=== PATIENT | male | born 1965 | race African-American/Black ===

== ENCOUNTER 2016-11-15 18:21 | Inpatient (IN) | payer MEDICARE, MEDICAID ==
[~2016-11-15] VITALS: Ht 172.7 cm; Wt 77.1 kg
[~2016-11-15 18:21] MED LIST: ASPI81 PO; LISI-660 PO; METF850T2 PO; RISP2 PO
[2016-11-15 18:48] LABS: BASOPHILS % (AUTO) 0.4 % (0.0-2.0); HEMATOCRIT 48.7 % (41-53); HEMOGLOBIN 16.5 g/dL (13.5-17.5); LYMPHOCYTES # (AUTO) 1.5 K/uL (1.0-4.8); MEAN CORPUSCULAR HGB CONC 33.8 G/dL (31.0-37.0); MEAN CORPUSCULAR VOLUME 89 fL (80-100); MONOCYTES # (AUTO) 0.3 K/uL (0.1-1.0); MONOCYTES % (AUTO) 7.5 % (2.0-9.0); NEUTROPHILS # (AUTO) 2.7 K/uL (1.8-7.7); NEUTROPHILS % (AUTO) 58.1 % (40.0-70.0); PLATELET COUNT (AUTO) 168 K/uL (150-450); RED BLOOD CELL COUNT(AUTO) 5.49 MIL/uL (4.50-5.90); RED CELL DISTRIBUTION WIDTH 12.2 % (11.5-14.5); WHITE BLOOD COUNT (AUTO) 4.6 K/uL (4.5-11.0)
[2016-11-15 19:13] LABS: ALANINE AMINOTRANSFERASE 38 U/L (12-78); ALBUMIN 3.7 g/dL (3.4-5.0); ANION GAP 11 mmol/L (8-16); ASPARTATE AMINOTRANSFERASE 18 U/L (15-37); BILIRUBIN,TOTAL 0.2 mg/dL (0.1-1.0); CARBON DIOXIDE 24 mmol/L (22-29); CHLORIDE 97 mmol/L (98-107); CREATININE 1.24 mg/dL (0.60-1.30); GLOMERULAR FILTR. RATE CALC > 60 mL/min (>60); POTASSIUM 4.1 mmol/L (3.5-5.1); SODIUM SERUM 132 mmol/L (136-145); TOTAL PROTEIN, SERUM 7.7 g/dL (6.4-8.2); UREA NITROGEN, BLOOD 14 mg/dL (7-18)
[2016-11-15 19:21] LABS: GLUCOSE,POINT OF CARE 425 MG/DL (70-110)
[2016-11-15] MEDS ORDERED: INSULIN REGULAR, HUMAN 100 UNITS/ML IVP ONE (20:15)
[2016-11-15] MEDS ORDERED: HALOPERIDOL 5 MG TABLET PO PRN (20:30)
[2016-11-15] MEDS ORDERED: LORazepam 2 MG TABLET PO PRN (20:30)
[2016-11-15] MEDS ORDERED: ZOLPIDEM TARTRATE 10 MG TABLET PO PRN (20:30)
[2016-11-15 21:05] LABS: GLUCOSE,POINT OF CARE 149 MG/DL (70-110)
[2016-11-15 21:17] LABS: APPEARANCE,URINE CLEAR (CLEAR); GLUCOSE, URINE (UA) >=1000 mg/dL (NEGATIVE); KETONES,URINE NEGATIVE (NEGATIVE); LEUKOCYTE ESTERASE ,URINE NEGATIVE (NEGATIVE); OCCULT BLOOD,URINE NEGATIVE (NEGATIVE); PH,URINE 5.5 (5.0-8.0); PROTEIN,URINE NEGATIVE (NEGATIVE)
[2016-11-15 21:18] LABS: ADD UA MICROSCOPIC YES
[2016-11-15 21:29] LABS: SQUAMOUS EPITHELIAL CELL,UR Few /LPF (None Seen)
[2016-11-15 21:30] LABS: RBC,URINE None Seen /HPF (0-2); WBC,URINE 0-2 /HPF (0-5)
[2016-11-15 21:55] LABS: GLUCOSE,POINT OF CARE 114 MG/DL (70-110)
[2016-11-16 00:31] VITALS: BP 144/87
[2016-11-16 06:11] LABS: GLUCOSE,POINT OF CARE 310 MG/DL (70-110)
[2016-11-16 08:00] VITALS: BP 159/90
[2016-11-16] MEDS: RisperiDONE 2 MG TABLET PO SCH ×3 (11:37→16:35)
[2016-11-16] MEDS ORDERED: BACITRACIN 28.4 GM OINTMENT TP PRN (13:45)
[2016-11-16] MEDS ORDERED: LOPERAMIDE HCL 2 MG CAPSULE PO PRN (13:45)
[2016-11-16] MEDS ORDERED: ONDANSETRON HCL 4 MG TABLET PO PRN (13:45)
[2016-11-16] MEDS ORDERED: ACETAMINOPHEN 325 MG TABLET PO PRN (13:45)
[2016-11-16] MEDS ORDERED: MAGNESIUM HYDROXIDE SUSPENSION 30 ML UDCUP PO PRN (13:45)
[2016-11-16] MEDS ORDERED: ALBUTEROL SULFATE HFA 90 MCG/PUFF 8 GM INHALER IH PRN (13:45)
[2016-11-16] MEDS ORDERED: DEXTROSE 50%-WATER 25 GM/50 ML SYRINGE IVP PRN (13:45)
[2016-11-16] MEDS ORDERED: MAG HYDROX/AL HYDROX/SIMETH ES 30 ML SUSPENSION UDCUP PO PRN (13:45)
[2016-11-16] MEDS ORDERED: PETROLATUM,WHITE 71 GM JELLY TP PRN (13:45)
[2016-11-16] MEDS ORDERED: CloNIDine HCL 0.1 MG TABLET PO PRN (13:45)
[2016-11-16] MEDS ORDERED: IBUPROFEN 600 MG TABLET PO PRN (13:45)
[2016-11-16] MEDS ORDERED: BENZOCAINE/MENTHOL LOZENGE [8 LOZENGES/PACKET] MM PRN (14:00)
[2016-11-16] MEDS: MetFORMIN HCL 500 MG TABLET PO SCH ×2 (16:20→16:35)
[2016-11-16 16:25] LABS: GLUCOSE,POINT OF CARE 318 MG/DL (70-110)
[2016-11-16 17:22] VITALS: BP 156/89
[2016-11-16] MEDS: INSULIN ASPART 100 UNITS/ML SQ PRN ×2 (18:05→21:42)
[2016-11-16 21:36] LABS: GLUCOSE,POINT OF CARE 389 MG/DL (70-110)
[2016-11-17 05:56] LABS: GLUCOSE,POINT OF CARE 308 MG/DL (70-110)
[2016-11-17] MEDS: MetFORMIN HCL 500 MG TABLET PO SCH ×2 (06:33→16:43)
[2016-11-17] MEDS: INSULIN ASPART 100 UNITS/ML SQ PRN ×4 (06:37→20:58)
[2016-11-17 07:07] LABS: ANION GAP 4 mmol/L (8-16); CALCIUM, TOTAL 8.8 mg/dL (8.8-10.5); CARBON DIOXIDE 30 mmol/L (22-29); CHLORIDE 101 mmol/L (98-107); CHOL/HDL RATIO 4.7 (4.2-7.3); CREATININE 0.87 mg/dL (0.60-1.30); GLOMERULAR FILTR. RATE CALC > 60 mL/min (>60); POTASSIUM 4.3 mmol/L (3.5-5.1); SODIUM SERUM 135 mmol/L (136-145); THYROID STIMULATING HORMONE 1.03 uIU/mL (0.36-3.74); UREA NITROGEN, BLOOD 15 mg/dL (7-18)
[2016-11-17 08:15] VITALS: BP 128/72
[2016-11-17] MEDS: ASPIRIN 81 MG CHEWABLE TABLET PO SCH (08:28)
[2016-11-17] MEDS: LISINOPRIL 10 MG TABLET PO SCH (08:28)
[2016-11-17] MEDS: RisperiDONE 2 MG TABLET PO SCH ×2 (08:28→16:44)
[2016-11-17 11:16] LABS: GLUCOSE,POINT OF CARE 278 MG/DL (70-110)
[2016-11-17 16:36] LABS: GLUCOSE,POINT OF CARE 250 MG/DL (70-110)
[2016-11-17 17:00] VITALS: BP 123/64
[2016-11-17 20:51] LABS: GLUCOSE,POINT OF CARE 254 MG/DL (70-110)
[2016-11-18 05:21] LABS: GLUCOSE,POINT OF CARE 241 MG/DL (70-110)
[2016-11-18] MEDS: INSULIN ASPART 100 UNITS/ML SQ PRN ×4 (06:32→20:50)
[2016-11-18] MEDS: MetFORMIN HCL 500 MG TABLET PO SCH ×2 (06:32→16:37)
[2016-11-18 06:36] VITALS: BP 114/90
[2016-11-18 08:00] VITALS: BP 119/70
[2016-11-18] MEDS: LISINOPRIL 10 MG TABLET PO SCH (08:05)
[2016-11-18] MEDS: RisperiDONE 2 MG TABLET PO SCH ×2 (08:05→16:37)
[2016-11-18] MEDS: ASPIRIN 81 MG CHEWABLE TABLET PO SCH (08:05)
[2016-11-18 11:31] LABS: GLUCOSE,POINT OF CARE 274 MG/DL (70-110)
[2016-11-18 16:40] LABS: GLUCOSE,POINT OF CARE 247 MG/DL (70-110)
[2016-11-18 19:39] VITALS: BP 137/84
[2016-11-18 20:17] VITALS: BP 137/84
[2016-11-18 20:50] LABS: GLUCOSE,POINT OF CARE 256 MG/DL (70-110)
[2016-11-19 05:31] LABS: GLUCOSE,POINT OF CARE 215 MG/DL (70-110)
[2016-11-19 06:32] VITALS: BP 130/72
[2016-11-19] MEDS: MetFORMIN HCL 500 MG TABLET PO SCH ×2 (06:46→17:14)
[2016-11-19] MEDS: INSULIN ASPART 100 UNITS/ML SQ PRN ×4 (06:46→21:11)
[2016-11-19 08:00] VITALS: BP 134/73
[2016-11-19] MEDS: RisperiDONE 2 MG TABLET PO SCH ×2 (08:16→17:13)
[2016-11-19] MEDS: LISINOPRIL 10 MG TABLET PO SCH (08:17)
[2016-11-19] MEDS: ASPIRIN 81 MG CHEWABLE TABLET PO SCH (08:17)
[2016-11-19 13:21] LABS: GLUCOSE,POINT OF CARE 322 MG/DL (70-110)
[2016-11-19 16:21] LABS: GLUCOSE,POINT OF CARE 155 MG/DL (70-110)
[2016-11-19 16:50] VITALS: BP 131/70
[2016-11-19 20:36] LABS: GLUCOSE,POINT OF CARE 249 MG/DL (70-110)
[2016-11-20 05:23] LABS: GLUCOSE,POINT OF CARE 228 MG/DL (70-110)
[2016-11-20 05:54] VITALS: BP 137/95
[2016-11-20] MEDS: MetFORMIN HCL 500 MG TABLET PO SCH ×2 (06:40→17:06)
[2016-11-20] MEDS: INSULIN ASPART 100 UNITS/ML SQ PRN ×3 (06:41→17:09)
[2016-11-20] MEDS: RisperiDONE 2 MG TABLET PO SCH ×2 (07:58→17:06)
[2016-11-20] MEDS: ASPIRIN 81 MG CHEWABLE TABLET PO SCH (07:58)
[2016-11-20] MEDS: LISINOPRIL 10 MG TABLET PO SCH (07:58)
[2016-11-20 11:51] LABS: GLUCOSE COMMENT 1 Received Meds; GLUCOSE,POINT OF CARE 224 MG/DL (70-110)
[2016-11-20 13:43] VITALS: BP 117/63
[2016-11-20 16:32] LABS: GLUCOSE,POINT OF CARE 241 MG/DL (70-110)
[2016-11-20 17:16] VITALS: BP 134/73
[2016-11-21 02:28] VITALS: BP 141/72
[2016-11-21 05:36] LABS: GLUCOSE,POINT OF CARE 240 MG/DL (70-110)
[2016-11-21] MEDS: INSULIN ASPART 100 UNITS/ML SQ PRN ×3 (06:47→20:24)
[2016-11-21] MEDS: MetFORMIN HCL 500 MG TABLET PO SCH ×2 (07:08→18:01)
[2016-11-21] MEDS: ASPIRIN 81 MG CHEWABLE TABLET PO SCH (08:47)
[2016-11-21] MEDS: RisperiDONE 2 MG TABLET PO SCH ×2 (08:47→16:47)
[2016-11-21] MEDS: LISINOPRIL 10 MG TABLET PO SCH (08:48)
[2016-11-21 10:50] VITALS: BP 137/80
[2016-11-21 11:56] LABS: GLUCOSE,POINT OF CARE 209 MG/DL (70-110)
[2016-11-21 16:08] VITALS: BP 135/79
[2016-11-21 16:51] LABS: GLUCOSE,POINT OF CARE 226 MG/DL (70-110)
[2016-11-22 02:08] VITALS: BP 140/91
[2016-11-22 05:36] LABS: GLUCOSE,POINT OF CARE 241 MG/DL (70-110)
[2016-11-22] MEDS: MetFORMIN HCL 500 MG TABLET PO SCH ×2 (06:34→17:02)
[2016-11-22] MEDS: INSULIN ASPART 100 UNITS/ML SQ PRN ×4 (06:46→21:43)
[2016-11-22 08:47] VITALS: BP 129/75
[2016-11-22] MEDS: ASPIRIN 81 MG CHEWABLE TABLET PO SCH (09:25)
[2016-11-22] MEDS: RisperiDONE 2 MG TABLET PO SCH ×2 (09:25→17:02)
[2016-11-22] MEDS: LISINOPRIL 10 MG TABLET PO SCH (09:25)
[2016-11-22 12:06] LABS: GLUCOSE,POINT OF CARE 243 MG/DL (70-110)
[2016-11-22 16:20] LABS: GLUCOSE COMMENT 1 Received Meds; GLUCOSE,POINT OF CARE 277 MG/DL (70-110)
[2016-11-22 17:00] VITALS: BP 105/76
[2016-11-22 21:41] LABS: GLUCOSE COMMENT 1 Received Meds; GLUCOSE,POINT OF CARE 150 MG/DL (70-110)
[2016-11-23 05:31] LABS: GLUCOSE,POINT OF CARE 216 MG/DL (70-110)
[2016-11-23 06:07] VITALS: BP 143/98
[2016-11-23] MEDS: MetFORMIN HCL 500 MG TABLET PO SCH ×2 (06:42→17:12)
[2016-11-23] MEDS: INSULIN ASPART 100 UNITS/ML SQ PRN ×4 (06:52→20:57)
[2016-11-23 08:00] VITALS: BP 132/72
[2016-11-23] MEDS: LISINOPRIL 10 MG TABLET PO SCH (08:04)
[2016-11-23] MEDS: ASPIRIN 81 MG CHEWABLE TABLET PO SCH (08:04)
[2016-11-23] MEDS: RisperiDONE 2 MG TABLET PO SCH ×2 (08:04→17:12)
[2016-11-23 11:21] LABS: GLUCOSE,POINT OF CARE 199 MG/DL (70-110)
[2016-11-23 16:57] VITALS: BP 142/75
[2016-11-23 20:40] LABS: GLUCOSE COMMENT 1 Received Meds; GLUCOSE,POINT OF CARE 214 MG/DL (70-110)
[2016-11-23 20:57] LABS: GLUCOSE COMMENT 1 Received Meds; GLUCOSE,POINT OF CARE 244 MG/DL (70-110)
[2016-11-24 02:12] VITALS: BP 149/92
[2016-11-24 05:26] LABS: GLUCOSE,POINT OF CARE 267 MG/DL (70-110)
[2016-11-24] MEDS: MetFORMIN HCL 500 MG TABLET PO SCH ×2 (06:38→17:04)
[2016-11-24] MEDS: INSULIN ASPART 100 UNITS/ML SQ PRN ×4 (06:45→20:59)
[2016-11-24 08:11] VITALS: BP 144/89
[2016-11-24] MEDS: RisperiDONE 2 MG TABLET PO SCH ×2 (08:11→17:04)
[2016-11-24] MEDS: ASPIRIN 81 MG CHEWABLE TABLET PO SCH (08:12)
[2016-11-24] MEDS: LISINOPRIL 10 MG TABLET PO SCH (08:12)
[2016-11-24 11:35] LABS: GLUCOSE,POINT OF CARE 251 MG/DL (70-110)
[2016-11-24 16:32] VITALS: BP 138/95
[2016-11-24 16:52] LABS: GLUCOSE COMMENT 1 Received Meds; GLUCOSE,POINT OF CARE 209 MG/DL (70-110)
[2016-11-24 20:41] LABS: GLUCOSE COMMENT 1 Received Meds; GLUCOSE,POINT OF CARE 147 MG/DL (70-110)
[2016-11-25 05:37] VITALS: BP 120/89
[2016-11-25 05:37] LABS: GLUCOSE COMMENT 1 Received Meds; GLUCOSE,POINT OF CARE 198 MG/DL (70-110)
[2016-11-25] MEDS: INSULIN ASPART 100 UNITS/ML SQ PRN ×2 (06:31→11:56)
[2016-11-25] MEDS: MetFORMIN HCL 500 MG TABLET PO SCH (06:32)
[2016-11-25 08:00] VITALS: BP 126/78
[2016-11-25] MEDS: LISINOPRIL 10 MG TABLET PO SCH (08:05)
[2016-11-25] MEDS: RisperiDONE 2 MG TABLET PO SCH (08:05)
[2016-11-25] MEDS: ASPIRIN 81 MG CHEWABLE TABLET PO SCH (08:05)
[2016-11-25] MEDS ORDERED: METF500T4 PO (09:47)
[2016-11-25 11:42] LABS: GLUCOSE,POINT OF CARE 217 MG/DL (70-110)
== END 2016-11-25 12:10 | disposition home or self-care (01) | DRG 885 ==
LOC: EMS 18:24 → 3EX 21:15
DX: F20.0 Paranoid schizophrenia (principal); E87.1 Hypo-osmolality and hyponatremia; E11.65 Type 2 diabetes mellitus with hyperglycemia; E78.00 Pure hypercholesterolemia, unspecified; E78.5 Hyperlipidemia, unspecified; G47.00 Insomnia, unspecified; I10 Essential (primary) hypertension; J44.9 Chronic obstructive pulmonary disease, unspecified; Z59.9 Problem related to housing and economic circumstances, unspecified; Z91.14 Patient's other noncompliance with medication regimen; F17.210 Nicotine dependence, cigarettes, uncomplicated; Z71.6 Tobacco abuse counseling
CPT/HCPCS: 82306; 82962; 84443; 96374; 99285; G0480; J1815; J3535

== ENCOUNTER 2017-01-07 21:31 | Emergency (ER) | payer MEDICARE, OTHER ==
[~2017-01-07] VITALS: Ht 152.4 cm; Wt 84.1 kg
[~2017-01-07 21:31] MED LIST changes: +METF500T4 PO; -METF850T2 PO
[2017-01-07 23:02] VITALS: BP 148/74
== END 2017-01-07 23:49 | disposition home or self-care (01) ==
LOC: EMS 21:33
DX: Z76.0 Encounter for issue of repeat prescription (principal); I10 Essential (primary) hypertension; J44.9 Chronic obstructive pulmonary disease, unspecified; E11.9 Type 2 diabetes mellitus without complications; E78.00 Pure hypercholesterolemia, unspecified; Z79.82 Long term (current) use of aspirin
CPT/HCPCS: 99283

== ENCOUNTER 2017-01-10 06:37 | Emergency (ER) | payer MEDICARE, OTHER ==
[~2017-01-10] VITALS: Ht 172.7 cm; Wt 89.5 kg
[2017-01-10 06:52] LABS: GLUCOSE,POINT OF CARE 235 MG/DL (70-110)
[2017-01-10 08:54] VITALS: BP 139/96
== END 2017-01-10 09:48 | disposition home or self-care (01) ==
LOC: EMS 06:39
DX: F41.9 Anxiety disorder, unspecified (principal); J44.9 Chronic obstructive pulmonary disease, unspecified; E11.9 Type 2 diabetes mellitus without complications; E78.00 Pure hypercholesterolemia, unspecified; F20.9 Schizophrenia, unspecified; Z79.82 Long term (current) use of aspirin
CPT/HCPCS: 82962; 99282; 99283

== ENCOUNTER 2017-02-23 15:30 | Emergency (ER) | payer MEDICARE, OTHER ==
[~2017-02-23] VITALS: Ht 172.7 cm; Wt 89.0 kg
[2017-02-23] MEDS ORDERED: RisperiDONE 1 MG TABLET PO ONE (16:00)
[2017-02-23 16:54] VITALS: BP 143/87
[2017-02-23 19:39] LABS: GLUCOSE,POINT OF CARE 323 MG/DL (70-110)
== END 2017-02-23 16:57 | disposition home or self-care (01) ==
LOC: EEVIPCON 15:32 → EMS 15:32
DX: F20.0 Paranoid schizophrenia (principal); E11.65 Type 2 diabetes mellitus with hyperglycemia; J44.9 Chronic obstructive pulmonary disease, unspecified; E78.00 Pure hypercholesterolemia, unspecified; F17.210 Nicotine dependence, cigarettes, uncomplicated; Z79.82 Long term (current) use of aspirin
CPT/HCPCS: 82962; 99283

== ENCOUNTER 2017-07-19 12:23 | Emergency (ER) | payer OTHER ==
[~2017-07-19] VITALS: Ht 157.5 cm; Wt 86.4 kg
[2017-07-19] MEDS ORDERED: GLIP5 PO (12:31)
[2017-07-19 12:33] LABS: GLUCOSE,POINT OF CARE 215 MG/DL (70-110)
[2017-07-19] MEDS ORDERED: IBUPROFEN 800 MG TABLET PO ONE (13:30)
[2017-07-19 13:43] VITALS: BP 138/82
== END 2017-07-19 15:34 | disposition home or self-care (01) ==
LOC: EMS 12:24
DX: R51 Headache (principal); E11.9 Type 2 diabetes mellitus without complications
CPT/HCPCS: 82962; 99283

== ENCOUNTER 2017-11-01 12:09 | Emergency (ER) | payer MEDICARE, OTHER ==
[~2017-11-01] VITALS: Ht 172.7 cm; Wt 86.4 kg
[~2017-11-01 12:09] MED LIST changes: -ASPI81 PO; +GLIP5 PO; -LISI-660 PO; -RISP2 PO
[2017-11-01 12:38] LABS: GLUCOSE,POINT OF CARE 390 MG/DL (70-110)
[2017-11-01] MEDS ORDERED: SODIUM CHLORIDE 0.9% 1,000 ML IV ONE (13:35)
[2017-11-01 14:14] LABS: BASOPHILS # (AUTO) 0.02 K/uL (0.00-0.20); BASOPHILS % (AUTO) 0.5 % (0.0-2.0); EOSINOPHILS # (AUTO) 0.13 K/uL (0.00-0.70); EOSINOPHILS % (AUTO) 2.71 % (1.0-6.0); HEMATOCRIT 45.5 % (41-53); LYMPHOCYTES # (AUTO) 1.2 K/uL (1.0-4.8); LYMPHOCYTES % (AUTO) 24.8 % (22.0-44.0); MEAN CORPUSCULAR HEMOGLOBIN 29.7 pg (26.0-34.0); MEAN CORPUSCULAR VOLUME 90 fL (80-100); MONOCYTES # (AUTO) 0.4 K/uL (0.1-1.0); MONOCYTES % (AUTO) 7.7 % (2.0-9.0); NEUTROPHILS # (AUTO) 3.1 K/uL (1.8-7.7); NEUTROPHILS % (AUTO) 64.3 % (40.0-70.0); PLATELET COUNT (AUTO) 180 K/uL (150-450); RED BLOOD CELL COUNT(AUTO) 5.04 MIL/uL (4.50-5.90); RED CELL DISTRIBUTION WIDTH 13.7 % (11.5-14.5)
[2017-11-01 14:25] LABS: ANION GAP 10 mmol/L (8-16); CALCIUM, TOTAL 8.8 mg/dL (8.8-10.5); CARBON DIOXIDE 26 mmol/L (22-29); CHLORIDE 99 mmol/L (98-107); CREATININE 1.19 mg/dL (0.60-1.30); GLOMERULAR FILTR. RATE CALC > 60 mL/min (>60); GLUCOSE,RANDOM 350 mg/dL (70-110); SODIUM SERUM 135 mmol/L (136-145); UREA NITROGEN, BLOOD 10 mg/dL (7-18)
[2017-11-01 14:31] LABS: ALANINE AMINOTRANSFERASE 21 U/L (12-78); ALBUMIN 3.2 g/dL (3.4-5.0); ALKALINE PHOSPHATASE 73 U/L (46-116); ASPARTATE AMINOTRANSFERASE 10 U/L (15-37); BILIRUBIN,TOTAL 0.3 mg/dL (0.1-1.0); LIPASE 71 U/L (73-393); TOTAL PROTEIN, SERUM 6.8 g/dL (6.4-8.2)
[2017-11-01 14:32] LABS: B-TYPE NATRIURETIC PEPTIDE < 5 pg/mL (0-100)
[2017-11-01 14:33] LABS: APPEARANCE,URINE CLEAR (CLEAR); BILIRUBIN,URINE NEGATIVE (NEGATIVE); GLUCOSE, URINE (UA) >=1000 mg/dL (NEGATIVE); KETONES,URINE NEGATIVE (NEGATIVE); LEUKOCYTE ESTERASE ,URINE NEGATIVE (NEGATIVE); NITRATE,URINE NEGATIVE (NEGATIVE); OCCULT BLOOD,URINE NEGATIVE (NEGATIVE); PH,URINE 6.5 (5.0-8.0); PROTEIN,URINE NEGATIVE (NEGATIVE); UROBILINOGEN,URINE 0.2 mg/dL (<=1.0)
[2017-11-01 14:42] LABS: BACTERIA,URINE None Seen /HPF (None Seen); RBC,URINE 0-2 /HPF (0-2); SQUAMOUS EPITHELIAL CELL,UR None Seen /LPF (None Seen); WBC,URINE 0-2 /HPF (0-5)
[2017-11-01 15:07] LABS: GLUCOSE,POINT OF CARE 295 MG/DL (70-110)
[2017-11-01 16:18] VITALS: BP 127/58
== END 2017-11-01 17:00 | disposition home or self-care (01) ==
LOC: EMS 12:11
DX: R10.13 Epigastric pain (principal); R10.12 Left upper quadrant pain; E11.65 Type 2 diabetes mellitus with hyperglycemia; I10 Essential (primary) hypertension; Z91.14 Patient's other noncompliance with medication regimen
CPT/HCPCS: 36415; 80053; 81001; 82962; 83690; 83880; 84484; 85025; 93005; 96360; 96361; 99285; J7030